=== PATIENT | male | born 1970 | race Asian ===

== ENCOUNTER 2019-10-25 02:23 | Emergency (ER) | payer SELFPAY ==
[~2019-10-25] VITALS: Ht 182.9 cm; Wt 63.6 kg
--- NOTE | 2019-10-25 02:26 | NUR ---
PT NOT IN LOBBY X1.
[2019-10-25] MEDS ORDERED: DIPHENHYDRAMINE 50 MG/ML, 1ML IVPush ONE (03:00)
[2019-10-25] MEDS ORDERED: KETOROLAC 30 MG/1 ML IVPush ONE (03:00)
[2019-10-25] MEDS ORDERED: PROCHLORPERAZINE 5 MG/ML, 2ML IVPush ONE (03:00)
[2019-10-25] MEDS ORDERED: PROCHLORPERAZINE 5 MG/ML, 2ML ONE (03:01)
[2019-10-25] MEDS ORDERED: KETOROLAC 30 MG/1 ML ONE (03:02)
[2019-10-25] MEDS ORDERED: DIPHENHYDRAMINE 50 MG/ML, 1ML ONE (03:02)
--- NOTE | 2019-10-25 03:16 | NUR ---
PT RESTING ON GURNEY WITH EYES CLOSED AND COVERED WITH T SHIRT. PT REPORTS INCREASED SENSITIVITY TO LIGHT. IV PLACED, MEDICATED PER AUG. PT TO IMAGING AT THIS TIME.
[2019-10-25 03:20] LABS: BASOPHILS # (AUTO) 0.04 x10^3/uL (0-0.1); BASOPHILS % (AUTO) 1 % (0-1); EOSINOPHILS # (AUTO) 0.31 x10^3/uL (0-0.4); EOSINOPHILS % (AUTO) 4 % (1-7); LYMPHOCYTES # (AUTO) 3.01 x10^3/uL (1-3.4); LYMPHOCYTES % (AUTO) 37 % (22-44); MD NO; MEAN CORPUSCULAR HEMOGLOBIN 32.5 pg (27.5-34.5); MEAN CORPUSCULAR HGB CONC 34.5 g/dL (33.2-36.2); MEAN PLATELET VOLUME 7.5 fL (7.4-10.4); MONOCYTES # (AUTO) 0.72 x10^3/uL (0.2-0.8); MONOCYTES % (AUTO) 9 % (2-9); NEUTROPHILS % (AUTO) 50 % (42-75); PLATELET COUNT 291 x10^3/uL (130-400); RED BLOOD COUNT 4.67 x10^6/uL (4.38-5.82); RED CELL DISTRIBUTION WIDTH 12.9 % (9.4-14.8)
[2019-10-25 03:27] LABS: ALBUMIN 3.7 g/dL (3.4-5.0); ANION GAP 8 mmol/L (5-15); CALCIUM 8.9 mg/dL (8.5-10.1); CHLORIDE 104 mmol/L (98-107); CREATININE 1.01 mg/dL (0.7-1.3)
[2019-10-25] MEDS ORDERED: OMNIPAQUE 350 MG/ML, 100ML BOTTLE ONE (04:02)
--- NOTE | 2019-10-25 04:19 | NUR ---
PT RESTING ON GURNEY. REPORTS DECREASED PAIN. MONITORING IN PLACE, CALL LIGHT WITHIN REACH, ALL SAFETY MEASURES IN PLACE.
[2019-10-25 05:14] VITALS: BP 145/97
== END 2019-10-25 05:17 | disposition home or self-care (01) ==
LOC: ED 02:59
DX: G43.109 Migraine with aura, not intractable, without status migrainosus (principal); I10 Essential (primary) hypertension; Z90.89 Acquired absence of other organs
CPT/HCPCS: 36415; 70450; 70496; 70498; 80048; 82040; 85025; 93005; 96374; 96375; 99285; J0780; J1200; J1885; Q9967